=== PATIENT | female | born 1965 | race Caucasian/White ===

== ENCOUNTER → 2017-04-05 | Outpatient (CLI) | payer OTHER ==
--- NOTE | 2017-04-05 13:03 | Diagnostic Imaging Report ---
DEXA SPINE / YVETTE HIP TECHNIQUE: Dual-energy absorptiometry of the lumbar spine and both hips was performed. INDICATION: 52-year-old postmenopausal female for osteoporosis screening. COMPARISON: 10/03/2007. FINDINGS: The bone mineral density of the total lumbar spine (L1-L4) is 0.919 g per centimeter square which gives a T score of -2.2 and a Z score of -2.0. Although there has been a decrease in bone mineral density in the lumbar spine since prior examination, this is not statistically significant. The bone mineral density of the left femoral neck is 0.771 g per centimeter square which gives a T score of -1.9 and a Z score of -1.3. The bone mineral density of the right femoral neck is 0.856 g per centimeter square which gives a T score of -1.3 and a Z score of -0.7. The total mean bone mineral density of the hips has decreased by 10% since prior exam, although this is not statistically significant. IMPRESSION: 1. Low bone mass (osteopenia). 2. No statistically significant change in bone mineral density since prior examination of 2007. 3. Consider followup DEXA exam in 12-24 months to reassess bone mineral density. Dictated by: Dictated on workstation # [id number]
--- NOTE | 2017-04-05 17:12 | Diagnostic Imaging Report ---
INDICATION: Digital mammogram bilateral screening. This study was compared to the prior exams of 03/24/14 and 08/23/12. At this time, there are no current complaints. The current study was also evaluated with a Computer Aided Detection (CAD) system. FINDINGS: The fibroglandular tissue in both breasts is heterogeneously dense. This does limit the sensitivity of this exam. Overall, there does not appear to have been any significant change when compared to the prior study. No primary or secondary sign of malignancy is noted. IMPRESSION: There is no radiographic evidence for malignancy. ACR BI-RADS Category 1: Negative. Result letter will be mailed to the patient. Note: At least 10% of breast cancer is not imaged by mammography. Dictated by: Dictated on workstation # [id number]
== END ==
LOC: RAD 10:59
PROVIDERS: ATTEND Nurse Practitioner Family
DX: Z12.31 Encounter for screening mammogram for malignant neoplasm of breast (principal); Z13.820 Encounter for screening for osteoporosis; M85.89 Other specified disorders of bone density and structure, multiple sites; Z78.0 Asymptomatic menopausal state
CPT/HCPCS: 77067; 77080

== ENCOUNTER → 2018-09-27 | Outpatient (CLI) | payer BC, OTHER ==
--- NOTE | 2018-09-28 07:56 | Diagnostic Imaging Report ---
Digital mammogram. Bilateral screening with 3-D tomosynthesis with CAD. The study was compared to prior exams of 04/05/2017, 03/24/2014 and 08/23/2012. At this time there are no current complaints. The current study was also evaluated with a Computer Aided Detection (CAD) system. FINDINGS: The fibroglandular tissue in both breasts is heterogeneously dense. This does limit the sensitivity of this exam. Overall, there does not appear to have been any significant change when compared to the prior study. No primary or secondary sign of malignancy is noted. IMPRESSION: There is no radiographic evidence for malignancy. ACR BI-RADS Category 1: Negative. Result letter will be mailed to the patient. Note: At least 10% of breast cancer is not imaged by mammography. Dictated by: Dictated on workstation # [id number]
== END ==
LOC: RAD 09:08
PROVIDERS: ATTEND Family Medicine
DX: Z12.31 Encounter for screening mammogram for malignant neoplasm of breast (principal)
CPT/HCPCS: 77067

== ENCOUNTER 2019-01-22 09:51 | Emergency (ER) | payer BC ==
[~2019-01-22] VITALS: Ht 157 cm; Wt 72.7 kg
[2019-01-22 09:51] VITALS: BP 161/86
[2019-01-22 10:10] LABS: BASOPHILS % (AUTO) 0 % (0-10); EOSINOPHILS # (AUTO) 0.2 10^3/uL (0.0-0.3); EOSINOPHILS % (AUTO) 2 % (0-10); HEMATOCRIT 42 % (35-52); HEMOGLOBIN 14.9 G/DL (11.5-16.0); LYMPHOCYTES # (AUTO) 1.9 X 10^3 (1.0-4.0); LYMPHOCYTES % (AUTO) 21 % (12-44); MEAN CORPUSCULAR HEMOGLOBIN 30 PG (25-34); MEAN CORPUSCULAR HGB CONC 35 G/DL (32-36); MEAN CORPUSCULAR VOLUME 86 FL (80-99); MEAN PLATELET VOLUME 9.9 FL (7.4-10.4); MONOCYTES # (AUTO) 0.9 X 10^3 (0.0-1.0); MONOCYTES % (AUTO) 10 % (0-12); NEUTROPHILS % (AUTO) 67 % (42-75); PLATELET COUNT 347 10^3/uL (130-400); RED CELL DISTRIBUTION WIDTH 12.4 % (10.0-14.5)
[2019-01-22] MEDS ORDERED: TRIA1CAP4 (10:13)
[2019-01-22] MEDS ORDERED: ASPIRIN 81 MG CHEW (CHILDREN'S ASA) PO ONE (10:15)
[2019-01-22] MEDS ORDERED: NITROGLYCERIN 0.4 MG SL TABS BTL 25'S SL PRN (10:15)
--- NOTE | 2019-01-22 10:17 | NUR ---
PT DENIES CHEST PAIN/PRESSURE AT THIS TIME. NITRO HELD. DR NOTIFIED.
[2019-01-22 10:22] LABS: ALANINE AMINOTRANSFERASE 20 U/L (0-55); ALBUMIN 4.8 GM/DL (3.2-4.5); ALKALINE PHOSPHATASE 129 U/L (40-136); BILIRUBIN,TOTAL 0.5 MG/DL (0.1-1.0); BUN/CREATININE RATIO 20; CALCIUM 10.2 MG/DL (8.5-10.1); CARBON DIOXIDE 28 MMOL/L (21-32); CHLORIDE 101 MMOL/L (98-107); CREATININE SERUM 0.84 MG/DL (0.60-1.30); GFR ESTIMATED > 60; GLUCOSE 117 MG/DL (70-105); MAGNESIUM 1.9 MG/DL (1.6-2.4); SODIUM 139 MMOL/L (135-145); TOTAL PROTEIN 7.9 GM/DL (6.4-8.2)
[2019-01-22 10:23] LABS: INR 0.9 (0.8-1.4); PROTHROMBIN TIME PATIENT 12.5 SEC (12.2-14.7)
--- NOTE | 2019-01-22 10:45 | Diagnostic Imaging Report ---
INDICATION: Chest pain COMPARISON: 11/01/2006 FINDINGS: Single frontal view of the chest demonstrates normal heart size and pulmonary vascularity. The lungs are well aerated and clear. No large pleural effusion or pneumothorax is seen. The visualized osseous structures show no acute abnormalities. IMPRESSION: 1. No acute cardiopulmonary process. Dictated by: Dictated on workstation # [id number]
[2019-01-22] MEDS ORDERED: NS IV 1000 ML 1,000 ML IV SCH (10:51)
[2019-01-22] MEDS ORDERED: POTASSIUM CL 10MEQ/50ML IVPB 50 ML IV ONE (11:00)
--- NOTE | 2019-01-22 11:00 | NUR ---
WARM BLANKETS GIVEN.
--- NOTE | 2019-01-22 11:23 | NUR ---
UP TO BATHROOM.
--- NOTE | 2019-01-22 12:30 | NUR ---
NOTIFIED HER DR SHOULD BE IN SOON. DENIES NEEDS AT THIS TIME.
[2019-01-22] MEDS ORDERED: KCL 10 MEQ TAB (MICRO K) PO ONE (13:15)
--- NOTE | 2019-01-22 13:22 | ED Chest Pain ---
General Chief Complaint: Chest Pain Stated Complaint: CP Nursing Triage Note: TO ROOM 06 VIA AMB FROM WORK. COMPLAINS OF MID CHEST PAIN THAT RADIATES TO BACK . Nursing Sepsis Screen: No Definite Risk Source: patient, old records Exam Limitations: no limitations History of Present Illness Date Seen by Provider: Jan 22, 2019 Time Seen by Provider: 09:52 Initial Comments This 53-year-old woman presents to the emergency room with complaints of chest pain right of center and radiating into the right back. Pain was first noticed around 06:30 and started as back discomfort. She tried an antacid therapy which was not helpful. She had her popped her back which also was not helpful. She then noticed her blood pressure was elevated at work. Pain actually seemed to be a little better with activity. She denies any associated symptoms. By the end of my initial assessment she was pain-free without treatment. Patient had a stress test in 2006 that was negative but has not had any cardiac testing done since then. She denies any tobacco use or diabetes but she does have a family history of heart disease. Her father had CABG. She is hypertensive and states she did take her blood pressure medications this morning. Pain was reported as 8 out of 10 at its worst and was sharp and heavy in nature. Allergies and Home Medications Allergies Coded Allergies: Penicillins (Verified Allergy, Unknown, 11/01/06) Patient Home Medication List Home Medication List Reviewed: Yes Review of Systems Review of Systems Constitutional: no symptoms reported EENTM: No Symptoms Reported Respiratory: No Symptoms Reported Cardiovascular: See HPI Gastrointestinal: No Symptoms Reported Genitourinary: No Symptoms Reported Musculoskeletal: no symptoms reported Skin: no symptoms reported Psychiatric/Neurological: No Symptoms Reported Endocrine: No Symptoms Reported Hematologic/Lymphatic: No Symptoms Reported Past Tbzezqt-Mljgpc-Eqmpzl Hx Past Med/Social Hx: Reviewed Nursing Past Med/Soc Hx Patient Social History Alcohol Use: Denies Use Recreational Drug Use: No Smoking Status: Never a Smoker Recent Foreign Travel: No Contact w/Someone Who Travel: No Recent Infectious Disease Expo: No Recent Hopitalizations: Yes (CHILDBIRTH X3) Past Medical History Surgeries: No Respiratory: No Cardiac: Yes Hypertension Neurological: No Reproductive Disorders: No Genitourinary: No Gastrointestinal: No Musculoskeletal: Yes (PROBLEMS WITH KNEES) Endocrine: No Cancer: No Psychosocial: No Integumentary: No Blood Disorders: No Family Medical History Reviewed and Corrections made Heart Disease Physical Exam Vital Signs Vital Signs - First Documented 01/22/19 09:51 Temp 37.7 Pulse 101 Resp 16 B/P (MAP) 161/86 (111) Pulse Ox 100 O2 Delivery Room Air Capillary Refill : Less Than 3 Seconds Height, Weight, BMI Height: '" Weight: lbs. oz. 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 Skin: Normal Color, Warm/Dry Progress/Results/Core Measures Results/Orders Lab Results Laboratory Tests Test 01/22/19 09:55 01/22/19 12:00 Range/Units White Blood Count 9.0 4.3-11.0 10^3/uL Red Blood Count 4.91 4.35-5.85 10^6/uL Hemoglobin 14.9 11.5-16.0 G/DL Hematocrit 42 35-52 % Mean Corpuscular Volume 86 80-99 FL Mean Corpuscular Hemoglobin 30 25-34 PG Mean Corpuscular Hemoglobin Concent 35 32-36 G/DL Red Cell Distribution Width 12.4 10.0-14.5 % Platelet Count 347 130-400 10^3/uL Mean Platelet Volume 9.9 7.4-10.4 FL Neutrophils (%) (Auto) 67 42-75 % Lymphocytes (%) (Auto) 21 12-44 % Monocytes (%) (Auto) 10 0-12 % Eosinophils (%) (Auto) 2 0-10 % Basophils (%) (Auto) 0 0-10 % Neutrophils # (Auto) 6.0 1.8-7.8 X 10^3 Lymphocytes # (Auto) 1.9 1.0-4.0 X 10^3 Monocytes # (Auto) 0.9 0.0-1.0 X 10^3 Eosinophils # (Auto) 0.2 0.0-0.3 10^3/uL Basophils # (Auto) 0.0 0.0-0.1 10^3/uL Prothrombin Time 12.5 12.2-14.7 SEC INR Comment 0.9 0.8-1.4 Activated Partial Thromboplast Time 29 24-35 SEC Sodium Level 139 135-145 MMOL/L Potassium Level 3.0 L 3.6-5.0 MMOL/L Chloride Level 101 98-107 MMOL/L Carbon Dioxide Level 28 21-32 MMOL/L Anion Gap 10 5-14 MMOL/L Blood Urea Nitrogen 17 7-18 MG/DL Creatinine 0.84 0.60-1.30 MG/DL Estimat Glomerular Filtration Rate > 60 BUN/Creatinine Ratio 20 Glucose Level 117 H 70-105 MG/DL Calcium Level 10.2 H 8.5-10.1 MG/DL Corrected Calcium 8.5-10.1 MG/DL Magnesium Level 1.9 1.6-2.4 MG/DL Total Bilirubin 0.5 0.1-1.0 MG/DL Aspartate Amino Transf (AST/SGOT) 20 5-34 U/L Alanine Aminotransferase (ALT/SGPT) 20 0-55 U/L Alkaline Phosphatase 129 40-136 U/L Myoglobin 36.0 10.0-92.0 NG/ML Troponin I < 0.028 < 0.028 <0.028 NG/ML Total Protein 7.9 6.4-8.2 GM/DL Albumin 4.8 H 3.2-4.5 GM/DL My Orders Orders - KP FERNANDEZ MD Cbc With Automated Diff (01/22/19 10:03) Magnesium (01/22/19 10:03) Chest 1 View, Ap/Pa Only (01/22/19 10:03) Ekg Tracing (01/22/19 10:03) Cardiac Profile 1 (01/22/19 10:03) Comprehensive Metabolic Panel (01/22/19 10:03) Myoglobin Serum (01/22/19 10:03) Protime With Inr (01/22/19 10:03) Partial Thromboplastin Time (01/22/19 10:03) O2 (01/22/19 10:03) Monitor-Rhythm Ecg Trace Only (01/22/19 10:03) Ed Iv/Invasive Line Start (01/22/19 10:03) Nitroglycerin 0.4 Mg Btl 25's (Nitrostat (01/22/19 10:15) Aspirin Chewable Tablet (Baby Aspirin Ch (01/22/19 10:15) Potassium Cl 10meq/50ml Ivpb (Kcl 10 Meq (01/22/19 11:00) Ns Iv 1000 Ml (Sodium Chloride 0.9%) (01/22/19 10:51) Troponin I (01/22/19 11:55) Potassium Chloride (Tablet) (Klor Con Ta (01/22/19 13:15) Medications Given in ED Current Medications Medications Dose Ordered Sig/[place] Route Start Time Stop Time Status Last Admin Dose Admin Aspirin 324 mg ONCE ONCE PO 01/22/19 10:15 01/22/19 10:16 DC 01/22/19 10:17 324 MG Potassium Chloride 40 meq ONCE ONCE PO 01/22/19 13:15 01/22/19 13:16 DC 01/22/19 13:19 40 MEQ Potassium Chloride 50 ml @ 50 mls/hr ONCE ONCE IV 01/22/19 11:00 01/22/19 11:59 DC 01/22/19 11:22 50 MLS/HR Vital Signs/I&O 01/22/19 09:51 Temp 37.7 Pulse 101 Resp 16 B/P (MAP) 161/86 (111) Pulse Ox 100 O2 Delivery Room Air Blood Pressure Mean: 111 POS Progress Progress Note : Progress Note Patient experienced no significant chest pain after initial assessment. Aspirin was administered. She was found to have hypokalemia. This was initially replaced with 10 mEq of potassium by IV route. An additional 40 mEq of po tassium was given orally prior to dismissal. A 2 hour troponin was obtained and was also negative. Case was discussed with Dr. Enrique who would like to see her in the clinic tomorrow. An appointment was scheduled. Initial ECG Impression Date: Jan 22, 2019 Initial ECG Impression Time: 09:57 Initial ECG Rate: 90 Initial ECG Rhythm: Normal Sinus Initial ECG Intervals: Normal Initial ECG Impression: Normal Comment Normal sinus rhythm with no ST elevation or depression. No abnormal intervals or axis deviation. Diagnostic Imaging Diagonstic Imaging: Xray Plain Films/CT/US/NM/MRI: chest Comments Chest x-ray viewed by me and report reviewed. See report below: NAME: MONTEZ GAN [facility] REC#: [id number] PT STATUS: REG ER : 1965 PHYSICIAN: KP FERNANDEZ MD ADMIT DATE: 01/22/19/ER Signed Date of Exam: 01/22/19 CHEST 1 VIEW, AP/PA ONLY INDICATION: Chest pain COMPARISON: 11/01/2006 FINDINGS: Single frontal view of the chest demonstrates normal heart size and pulmonary vascularity. The lungs are well aerated and clear. No large pleural effusion or pneumothorax is seen. The visualized osseous structures show no acute abnormalities. IMPRESSION: 1. No acute cardiopulmonary process. Dictated by: Dictated on workstation # [id number] Dict: 01/22/19 1043 Trans: 01/22/19 1158 Interpreted by: DANIEL PATE MD Electronically signed by: DANIEL PATE MD 01/22/19 1158 Departure Impression Primary Impression: Chest pain Qualified Codes: R07.9 - Chest pain, unspecified Additional Impression: Hypokalemia Disposition: HOME, SELF-CARE Condition: Improved Departure-Patient Inst. Decision time for Depature: 13:19 Referrals: ALEXANDR ENRIQUE MD [facility] LOUISE BERMUDEZ DO (PCP/Family) Primary Care Physician Patient Instructions: Chest Pain Add. Discharge Instructions: Take aspirin 81 mg daily until otherwise instructed. Follow-up at Dr. Enrique's office tomorrow, January 23 at 3:20 p.m. Bring all of your medications or a list of your medications as well as any updates to your health history. Return to the emergency room if you have worsening of symptoms in the meantime. All discharge instructions reviewed with patient and/or family. Voiced understanding. Copy Copies To 1: ALEXANDR ENRIQUE MD [facility] Copies To 2: LOUISE BERMUDEZ JOSHUA T MD Jan 22, 2019 13:22 POS
== END 2019-01-22 13:33 | disposition home or self-care (01) ==
LOC: EDUNIT# 09:51 → ER 09:52
DX: R07.9 Chest pain, unspecified (principal); E87.6 Hypokalemia; I10 Essential (primary) hypertension; Z88.0 Allergy status to penicillin; Z82.49 Family history of ischemic heart disease and other diseases of the circulatory system
CPT/HCPCS: 36415; 71045; 80053; 83735; 83874; 84484; 85025; 85610; 85730; 93005; 93041; 96360; 96361

== ENCOUNTER → 2019-01-28 | Outpatient (CLI) | payer BC ==
[~2019-01-28] VITALS: Ht 160 cm; Wt 74.0 kg
[~2019-01-28] MED LIST: CATHETER FLUSH 10 ML SYR IV PRN; REGADENOSON 0.4 MG/5 ML SYR (LEXISCAN) IV ONE; TRIA1CAP4
[2019-01-28 09:41] VITALS: BP 158/74
[2019-01-28 09:44] VITALS: BP 130/77
--- NOTE | 2019-01-29 13:12 | STRESS TEST ---
DATE OF SERVICE: 01/28/2019 RESTING AND POST REGADENOSON TECHNETIUM-99M TETROFOSMIN SPECT CT IMAGING ORDERING PHYSICIAN: Dr. Enrique. PRIMARY CARE PHYSICIAN: Dr. Wells. CLINICAL DIAGNOSIS: Chest discomfort. Baseline images were carried out after injection of 10.23 mCi of technetium-99m Tetrofosmin. This was followed by 0.4 mg regadenoson and 32.9 mCi of technetium-99m Tetrofosmin for stress imaging. The electrocardiogram showed sinus rhythm at baseline with subtle nonspecific ST abnormality. The electrocardiogram did not change significantly with regadenoson infusion. Following regadenoson infusion, the patient experienced some fatigue, which resolved shortly afterwards. Review of images at rest and following stress does not indicate any significant perfusion defects consistent with significant myocardial ischemia or infarction. Gated images show normal global left ventricular systolic function with normal regional wall motion. Left ventricular ejection fraction is calculated to be 75%. Left ventricular end diastolic volume is 36 mL. TID is absent (0.97). CONCLUSIONS: 1. No evidence of any significant myocardial ischemia or infarction on this study. 2. Normal regional wall motion. 3. Normal global left ventricular systolic function with a calculated ejection fraction of 75%. Job ID: [id number] DocumentID: [id number] Dictated Date: 01/29/2019 13:04:17 [place] Steward/Stewardess Date: 01/29/2019 13:11:52 Dictated By: ALEXANDR ENRIQUE MD, MA, FACP, FACC,
== END ==
LOC: CARD 07:45
PROVIDERS: ATTEND Internal Medicine Cardiovascular Disease
DX: E87.8 Other disorders of electrolyte and fluid balance, not elsewhere classified (principal); R07.89 Other chest pain; Z82.49 Family history of ischemic heart disease and other diseases of the circulatory system
CPT/HCPCS: 78452; 93017

== ENCOUNTER → 2019-02-07 | Outpatient (CLI) | payer BC ==
[~2019-02-07] MED LIST changes: -CATHETER FLUSH 10 ML SYR IV PRN; -REGADENOSON 0.4 MG/5 ML SYR (LEXISCAN) IV ONE
== END ==
LOC: CARD 11:51
PROVIDERS: ATTEND Internal Medicine Cardiovascular Disease
DX: E87.8 Other disorders of electrolyte and fluid balance, not elsewhere classified (principal); R07.89 Other chest pain; Z82.49 Family history of ischemic heart disease and other diseases of the circulatory system
CPT/HCPCS: 93306

== ENCOUNTER → 2019-09-29 | Outpatient (CLI) | payer BC ==
--- NOTE | 2019-09-29 11:49 | Diagnostic Imaging Report ---
INDICATION: Routine screening. COMPARISON: 09/27/2018 and 04/05/2017. TECHNIQUE: 2D and 3D bilateral screening mammography was performed with CAD. FINDINGS: Both breasts are heterogeneously dense, limiting the sensitivity of mammography. The parenchymal pattern is stable. No mass or malignant appearing microcalcifications are seen. The axillae are unremarkable. IMPRESSION: No mammographic features suspicious for malignancy are identified. ACR BI-RADS Category 1: Negative. Result letter will be mailed to the patient. Note: At least 10% of breast cancer is not imaged by mammography. Dictated by: Dictated on workstation # [id number]
== END ==
LOC: RAD 09:09
PROVIDERS: ATTEND Family Medicine
DX: Z12.31 Encounter for screening mammogram for malignant neoplasm of breast (principal)
CPT/HCPCS: 77063; 77067

== ENCOUNTER → 2020-09-29 | Outpatient (CLI) | payer BC ==
--- NOTE | 2020-09-30 11:07 | Diagnostic Imaging Report ---
INDICATION: Routine screening. COMPARISON is made with prior mammograms 09/29/2019 and 09/27/2018. 2-D and 3-D bilateral screening mammography was performed with CAD. Both breasts are heterogeneously dense, limiting the sensitivity of mammography. The parenchymal pattern is stable. No mass or malignant-appearing microcalcifications are seen. Axillae are unremarkable. IMPRESSION: BI-RADS Category 1 No mammographic features suspicious for malignancy are identified. ACR BI-RADS Category 1: Negative. Result letter will be mailed to the patient. Note: At least 10% of breast cancer is not imaged by mammography. Dictated by: Dictated on workstation # [id number]
== END ==
LOC: RAD 14:45
PROVIDERS: ATTEND Family Medicine
DX: Z12.31 Encounter for screening mammogram for malignant neoplasm of breast (principal)
CPT/HCPCS: 77063; 77067

== ENCOUNTER → 2021-12-20 | Outpatient (CLI) | payer BC ==
[~2021-12-20] MED LIST changes: -TRIA1CAP4; +TRIA1CAP84
--- NOTE | 2021-12-20 14:51 | Diagnostic Imaging Report ---
Indication: Routine screening. Comparison is made with prior mammogram from 09/29/2020 and 09/27/2018. 2-D and 3-D bilateral screening mammography was performed with CAD. CAD is utilized. The current study was also evaluated with a Computer Aided Detection (CAD) system. Both breasts are heterogeneously dense, limiting the sensitivity of mammography. The parenchymal pattern is stable. No mass or malignant-appearing microcalcifications are seen. Axillae are unremarkable. IMPRESSION: BI-RADS Category 1 No mammographic features suspicious for malignancy are identified. ACR BI-RADS Category 1: Negative. Result letter will be mailed to the patient. Note: At least 10% of breast cancer is not imaged by mammography. Dictated by: Dictated on workstation # [id number]
--- NOTE | 2021-12-20 18:03 | Diagnostic Imaging Report ---
INDICATION: Postmenopausal state, screening for osteoporosis COMPARISON: 04/05/2017 FINDINGS: AP Spine L2-L4: [BMD (g/cm2): 0.820] [T-Score: -3.2] [Z-Score: -2.5] [BMD Previous: 0.947] [BMD % Change: -13.4] LT Hip Neck: [BMD (g/cm2): 0.737] [T-Score: -2.2] [Z-Score: -1.2] LT Hip Total: [BMD (g/cm2):0.827] [T-Score:-1.4] [Z-Score: -0.9] [BMD Previous: 0.860] [BMD % Change: -3.8] RT Hip Neck: [BMD (g/cm2):0.822] [T-Score:-1.6] [Z-Score:-0.6] RT Hip Total: [BMD (g/cm2):0.849] [T-score:-1.3] [Z-Score:-0.7] [BMD Previous:0.875] [BMD % Change:-3.0] *Indicates significant change from prior examination based on 95% confidence level. World Health Organization criteria for BMD interpretation classify patients as Normal (T-score at or above -1.0), Osteopenic (T-score between -1.0 and -2.5) or Osteoporotic (T-score at or below -2.5). LIMITATIONS AND MODIFICATION: None. FRACTURE RISK (FRAX SCORE): The ten year probability of (%): Major Osteoporotic Fracture: [9.2] Hip Fracture: [1.3] IMPRESSION: 1. Osteoporosis. 2. Bone mineral density within the lumbar spine has significantly decreased since the prior examination. Bone mineral density within the total right hip has not significantly changed since the prior exam. 3. See below National Osteoporosis Foundation guidelines on when to potentially initiate pharmacologic therapy. Based on the National Osteoporosis Foundation Guidelines, pharmacologic treatment should be initiated in any of the following, unless clinical conditions suggest otherwise: * Any patient with prior fragility fracture of the hip or vertebrae. A spine fracture indicates 5X risk for subsequent spine fracture and 2X risk for subsequent hip fracture. * Osteoporosis (T-score <-2.5). * Postmenopausal women and men age 50 and older with low bone mass/osteopenia (T-score between -1.0 and -2.5) by DXA and 10-year major osteoporotic fracture greater than 20% or a 10-year probability of hip fracture greater than 3%. These fracture risks are supplied above in the FRAX score, if applicable. * Clinician judgement and/or patient preferences may indicate treatment for people with 10-year fracture probabilities above or below these levels. Dictated by: Dictated on workstation # [id number]
== END ==
LOC: RAD 09:45
PROVIDERS: ATTEND Nurse Practitioner Family
DX: Z12.31 Encounter for screening mammogram for malignant neoplasm of breast (principal); Z13.820 Encounter for screening for osteoporosis; M85.80 Other specified disorders of bone density and structure, unspecified site; M81.0 Age-related osteoporosis without current pathological fracture; Z78.0 Asymptomatic menopausal state
CPT/HCPCS: 77063; 77067; 77080